=== PATIENT | male | born 1970 | race Caucasian/White ===

== ENCOUNTER 2017-11-14 20:00 | Emergency (ER) | payer BC ==
--- OUTSIDE RECORDS SUMMARY | 2017-11-14 20:02 | XMS REPORT | Clinical Summary ---
:1970 Author Organization [facility] Address [address] [place] [address] Care Team Providers Name Role Phone Janiya Baldwin MD Primary Care Provider Allergies Active Allergy Reactions Severity Noted Date Comments Sulfamethoxazole-Trimethoprim Hives 05/20/2017 Current Medications Prescription Sig. Disp. Refills Start Date End Date Status ZUBSOLV 5.7-1.4 mg 0 04/20/2017 Active tablet, sublingual amphetamine-dextro 0 04/20/2017 Active amphetamine XR (ADDERALL XR) 20 MG 24 hr capsule lisinopril Take 1 tablet 90 tablet 1 05/20/2017 Active (PRINIVIL,ZESTRIL) (20 mg total) by 20 mg mouth daily. tabletIndications: Essential hypertension metFORMIN Take 1 tablet 60 tablet 1 05/20/2017 Active (GLUCOPHAGE) 500 (500 mg total) 8 mg by mouth 2 (two) tabletIndications: times a day with Type 2 diabetes meals. mellitus without complication, without long-term current use of insulin blood-glucose Use as 1 each 0 05/20/2017 Active meter instructed 8 kitIndications: Type 2 diabetes mellitus without complication, without long-term current use of insulin lancets For checking 100 each 0 05/20/2017 Active miscIndications: blood sugars 3 Type 2 diabetes times a day mellitus without complication, without long-term current use of insulin blood sugar Check blood 100 strip 0 05/20/2017 Active diagnostic strips sugar once a day strip test strips lisinopril 2 04/20/2017 Discontinued (PRINIVIL,ZESTRIL) 7 20 mg tablet sodium,potassium,m Take 1 Bottle by 1 Bottle 0 05/27/2017 ag sulfates mouth once for 1 7 (SUPREP BOWEL PREP dose. KIT) 17.5-3.13-1.6 gram recon soln Active Problems Problem Noted Date Tobacco abuse Overview: Not ready to quit; knows that it is bad to smoke and risk factors. Last Assessment & Plan: 3 minutes were spent on tobacco use counseling. Tobacco use was Assessed and patient is an active tobacco user. Factors affecting choice of behavior were discussed. Willing to start chantix in near future. Opiate dependence Overview: on zubsolv - Dr. Zarco Hypertension Overview: lisinopril 20 mg; uncontrolled. No chest pain or SOB. Last Assessment & Plan: Hypertension is worsening. Continue current treatment regimen. Dietary sodium restriction. Weight loss. Regular aerobic exercise. Stop smoking. Continue current medications. Blood pressure will be reassessed at the next regular appointment. ETOH abuse Overview: Being on the zubsolv has helped with addiciton and planning to taper off. Diabetes Overview: was on janumet but then insurance wouldn't cover it. He states his sugars have been all over the place. Doesn't know what his A1c is. Knows his diet is bad. He denies any known complications. He does smoke. He used to drink a lot. Last Assessment & Plan: Diabetes is newly identified. Dietary recommendations for ADA diet. Regular aerobic exercise. Discussed sick day management. Discussed foot care. Reminded to get yearly retinal exam. Start back with metformin 500 mg BID and pending A1c will likely start victoza. Stressed importance of diet and exercise and he will get sugars checked daily. Diabetes will be reassessed in 1 month. ADD (attention deficit disorder) Overview: on adderall managed by pain management. 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 Last Assessment & Plan: The pt's BMI was assessed and in the obesity range. Behavioral risks were discussed. Advice was given in the form of specific change advice, carb, calorie and fat control, with handouts and examples. Sp ecific risks of harm were explained. We agreed on weight and dietary goals and methods and the patient expressed interest. Assistance was given in gaining skills for better food choices, alternatives in different social environments, and behavioral changes. Arrangements were made for follow up appointments for ongoing treatment and support. Referrals will be made for more intensive intervention as appropriate. Counseled for 15 minutes Encounters Date Type Specialty Care Team Description 11/01/2017 Refill Internal Medicine Janiya Baldwin Essential hypertension MD Lambert 08/11/2017 Refill Internal Medicine Janiya Baldwin Type 2 diabetes mellitus MD Lambert without complication, without long-term current use of insulin 08/10/2017 Refill Internal Medicine Janiya Baldwin Type 2 diabetes mellitus MD Lambert without complication, without long-term current use of insulin 08/03/2017 Refill Internal Medicine Janiya Baldwin Type 2 diabetes mellitus MD Lambert without complication, without long-term current use of insulin 07/28/2017 Telephone Internal Medicine Janiya Baldwin MD 07/15/2017 Telephone Internal Medicine Janiya Baldwin Type 2 diabetes mellitus MD Lambert without complication, without long-term current use of insulin 07/11/2017 Refill Internal Medicine Janiya Baldwin Type 2 diabetes mellitus MD Lambert without complication, without long-term current use of insulin 06/24/2017 Lab Lab Edwin Schuler MD 06/24/2017 Documentation Gastroenterology Edwin Schuler MD 06/22/2017 Telephone Gastroenterology Gloria Villalba MA 06/01/2017 Telephone Gastroenterology Gloria Villalba MA 05/31/2017 Telephone Gastroenterology Edwin Schuler MD 05/27/2017 Refill Gastroenterology Gloria Villalba MA 05/24/2017 Telephone Internal Medicine Janiya Baldwin MD 05/23/2017 Telephone Gastroenterology Edwin Schuler MD 05/20/2017 Lab Lab Janiya Baldwin Essential hypertension; MD Lambert Type 2 diabetes mellitus without complication, without long- term current use of insulin 05/20/2017 Office Visit Internal Medicine Janiya Baldwin ADD (attention deficit disorder) (Primary Dx); MD Lambert Type 2 diabetes mellitus without complication, without long- term current use of insulin; ETOH abuse; Essential hypertension; Morbid obesity due to excess calories; Opioid dependence in remission; Tobacco abuse; Screening for colon cancer; Skin lesion 05/20/2017 Refill Internal Medicine Janiya Baldwin MD after 11/13/2016 Family History Medical History Relation Name Comments Colon cancer Father Relation Name Status Comments Father Social History Tobacco Use Types Packs/Day Years Used Date Current Every Day Smoker Started: 1985 Smokeless Tobacco: Never Used Alcohol Use Drinks/Week oz/Week Comments Yes Sex Assigned at Date Recorded Not on file Last Filed Vital Signs Vital Sign Reading Time Taken Blood Pressure 144/86 05/20/2017 11:28 AM CDT Pulse 85 05/20/2017 11:28 AM CDT Temperature - - Respiratory Rate 16 05/20/2017 11:28 AM CDT Oxygen Saturation 96% 05/20/2017 11:28 AM CDT Inhaled Oxygen Concentration - - Weight 143 kg (316 lb) 05/20/2017 11:28 AM CDT Height 185.4 cm (6' 1") 05/20/2017 11:28 AM CDT Body Mass Index 41.69 05/20/2017 11:28 AM CDT Plan of Treatment Health Maintenance Due Date Last Done Comments FOOT EXAM 01/08/1978 OPHTHALMOLOGY EXAM 01/08/1978 URINE MICROALBUMIN 01/08/1978 INFLUENZA VACCINE 03/29/2017 Results Surgical pathology request (06/24/2017 10:44 AM) Component Value Ref Range Surgical pathology report See link below for PDF Lab Report Specimen Performing Laboratory Tissue [facility] DEPARTMENT OF PATHOLOGY AND GENOMIC MEDICINE [address] [place] [id number] CBC with platelet and differential (05/20/2017 12:48 PM) Component Value Ref Range WBC 8.6 3.8 - 10.8 Thousand/uL RBC 4.70 4.20 - 5.80 Million/uL HGB 13.9 13.2 - 17.1 g/dL HCT 41.7 38.5 - 50.0 % MCV 88.7 80.0 - 100.0 fL MCH 29.6 27.0 - 33.0 pg MCHC 33.3 32.0 - 36.0 g/dL RDW 12.5 11.0 - 15.0 % Platelet count 260 140 - 400 Thousand/uL MPV 11.3 7.5 - 12.5 fL Neutrophils, absolute 5,057 1,500 - 7,800 cells/uL Lymphocytes, absolute 2,571 850 - 3,900 cells/uL Monocytes, absolute 662 200 - 950 cells/uL Eosinophils, absolute 258 15 - 500 cells/uL Basophils, absolute 52 0 - 200 cells/uL Neutrophils 58.8 % Lymphocytes 29.9 % Monocytes 7.7 % Eosinophils 3.0 % Basophils + RC 0.6 % Specimen Performing Laboratory Blood [facility] Hemoglobin A1c (05/20/2017 12:48 PM) Component Value Ref Range Hemoglobin A1C 12.6 (H) <5.7 % of total Hgb Comment: For someone without known diabetes, a hemoglobin A1c value of 6.5% or greater indicates that they may have diabetes and this should be confirmed with a follow-up test. For someone with known diabetes, a value <7% indicates that their diabetes is well controlled and a value greater than or equal to 7% indicates suboptimal control. A1c targets should be individualized based on duration of diabetes, age, comorbid conditions, and other considerations. Currently, no consensus exists regarding use of hemoglobin A1c for diagnosis of diabetes for children. Specimen Performing Laboratory Blood [facility] Comprehensive metabolic panel (05/20/2017 12:48 PM) Component Value Ref Range Glucose 378 (H) 65 - 99 mg/dL Comment: Fasting reference interval For someone without known diabetes, a glucose value >125 mg/dL indicates that they may have diabetes and this should be confirmed with a follow-up test. BUN, whole blood 19 7 - 25 mg/dL Creatinine 0.81 0.60 - 1.35 mg/dL EGFR Non-Afr. [place] 104 > OR=60 mL/min/1.73m2 EGFR 121 > OR=60 mL/min/1.73m2 BUN/creatinine ratio NOT APPLICABLE 6 - 22 (calc) Sodium 133 (L) 135 - 146 mmol/L Potassium 4.5 3.5 - 5.3 mmol/L Chloride 98 98 - 110 mmol/L CO2 28 20 - 31 mmol/L Calcium 9.2 8.6 - 10.3 mg/dL Protein 6.9 6.1 - 8.1 g/dL Albumin, S 3.9 3.6 - 5.1 g/dL Globulin, total 3.0 1.9 - 3.7 g/dL (calc) Albumin/globulin ratio 1.3 1.0 - 2.5 (calc) Total bilirubin 0.3 0.2 - 1.2 mg/dL Alkaline phosphatase 107 40 - 115 U/L AST 25 10 - 40 U/L ALT 39 9 - 46 U/L Specimen Performing Laboratory Blood [facility] after 11/13/2016 Insurance Payer Benefit Plan / Group Subscriber ID Type Phone Address BCBS BCBS CHOICE PPO/[employer]PL PPO xxxxxxxxxxxx PPO Home: [address] [phone] [place] [address]
--- NOTE | 2017-11-14 21:24 | EDPHYS ---
Physician Documentation [facility] Name: Lonnie Hardin Age: 47 yrs Sex: Male : 1970 Arrival Date: 11/14/2017 Time: 20:04 Bed 15 Private MD: Saji Zarco W ED Physician Barney Staley HPI: 11/14 21:19 This 47 yrs old Male presents to ER via Ambulatory with complaints of Leg gs Swelling. 21:19 The patient presents with cellulitis of the left hernandez. Description: The affected area gs is moderate sized, erythematous. Onset: The symptoms/episode began/occurred 5 day(s) ago. Possible cause(s): unknown. Associated signs and symptoms: Pertinent negatives: fever. Modifying factors: the symptoms are alleviated by nothing, the symptoms are aggravated by nothing. Severity of symptoms: At their worst the symptoms were moderate, in the emergency department the symptoms are unchanged. The patient has experienced similar episodes in the past, a few times. The patient has been recently seen by a physician: the patient's primary care provider, 1 week(s) ago. Historical: - Allergies: 20:26 Bactrim; lp1 - Home Meds: 20:26 lisinopril Oral [Active]; Metformin Oral [Active]; Adderall XR Oral [Active]; lp1 - PMHx: 20:26 ADD/ADHD; Diabetes - NIDDM; Hypertension; lp1 - PSHx: 20:26 None; lp1 - Immunization history:: Adult Immunizations up to date. - Social history:: Smoking status: Patient uses tobacco products, smokes one pack cigarettes per day. ROS: 21:19 Constitutional: Negative for fever. gs 21:19 All other systems are negative. Exam: 21:19 Head/Face: Normocephalic, atraumatic. Eyes: Pupils equal round and reactive to light, gs extra-ocular motions intact. Lids and lashes normal. Conjunctiva and sclera are non-icteric and not injected. Cornea within normal limits. Periorbital areas with no swelling, redness, or edema. ENT: Nares patent. No nasal discharge, no septal abnormalities noted. Tympanic membranes are normal and external auditory canals are clear. Oropharynx with no redness, swelling, or masses, exudates, or evidence of obstruction, uvula midline. Mucous membranes moist. Neck: Trachea midline, no thyromegaly or masses palpated, and no cervical lymphadenopathy. Supple, full range of motion without nuchal rigidity, or vertebral point tenderness. No Meningismus. Chest/axilla: Normal chest wall appearance and motion. Nontender with no deformity. No lesions are appreciated. Cardiovascular: Regular rate and rhythm with a normal S1 and S2. No gallops, murmurs, or rubs. Normal PMI, no JVD. No pulse deficits. Respiratory: Lungs have equal breath sounds bilaterally, clear to auscultation and percussion. No rales, rhonchi or wheezes noted. No increased work of breathing, no retractions or nasal flaring. Abdomen/GI: Soft, non-tender, with normal bowel sounds. No distension or tympany. No guarding or rebound. No evidence of tenderness throughout. Back: No spinal tenderness. No costovertebral tenderness. Full range of motion. MS/ Extremity: Pulses equal, no cyanosis. Neurovascular intact. Full, normal range of motion. Neuro: Awake and alert, GCS 15, oriented to person, place, time, and situation. Cranial nerves II-XII grossly intact. Motor strength 5/5 in all extremities. Sensory grossly intact. Cerebellar exam normal. Normal gait. 21:19 Constitutional: The patient appears alert, awake. 21:19 Musculoskeletal/extremity: Extremities: noted in the left leg: swelling, mild, Circulation is intact in all extremities. DVT Exam: no tenderness, negative Homans' sign noted on exam, no appreciated bluish discoloration. 21:19 Skin: cellulitis, that is moderate, well demarcated, on the left hernandez. Vital Signs: 20:25 BP 141 / 82; Pulse 86; Resp 18; Temp 98.3(O); Pulse Ox 97% on R/A; Weight 146.06 kg; lp1 Height 6 ft. 1 in. (185.42 cm); Pain 8/10; 21:33 BP 141 / 79 RA Sitting (auto/); Pulse 82; Resp 16; Pulse Ox 98% on R/A; ar4 20:25 Body Mass Index 42.48 (146.06 kg, 185.42 cm) lp1 MDM: 21:17 Patient medically screened. gs 21:19 Differential diagnosis: cellulitis. Data reviewed: vital signs, nurses notes. Response gs to treatment: There is no appreciated change of the patient's symptoms at this time, and as a result, I will discharge patient. Administered Medications: 21:30 Drug: Cephalexin 1000 mg Route: PO; tc3 21:31 Follow up: Response: No adverse reaction tc3 Disposition: 11/14/17 21:23 Discharged to Home. Impression: Cellulitis of left lower limb. - Condition is Stable. - Discharge Instructions: Cellulitis. - Prescriptions for Bactroban 2 % Topical cream - apply 1 ribbon by TOPICAL route 2 times per day; 30 gram. Keflex 500 mg Oral Capsule - take 2 capsule by ORAL route every 12 hours for 10 days; 40 capsule. - Medication Reconciliation Form, Thank You Letter, Antibiotic Education, Prescription Opioid Use form. - Follow up: Private Physician; When: 1 - 2 days; Reason: Re-evaluation by your physician. Signatures: Nitza Almonte RN RN lp1 Marya Maya RN RN tc3 Barney Staley MD MD gs Roberts, Amber ar4
--- NOTE | 2017-11-14 21:24 | ER ---
Nurse's Notes [facility] Name: Lonnie Hardin Age: 47 yrs Sex: Male : 1970 Arrival Date: 11/14/2017 Time: 20:04 Bed 15 Private MD: Saji Zarco W Diagnosis: Cellulitis of left lower limb Presentation: 11/14 20:24 Presenting complaint: Patient states: Redness, swelling to left lower leg x 1 week; Hx lp1 of cellulitis; Denies any fever. Transition of care: patient was not received from another setting of care. Onset of symptoms was November 14, 2017. Care prior to arrival: None. 20:24 Method Of Arrival: Ambulatory lp1 20:24 Acuity: SOFIE 3 lp1 Triage Assessment: 20:27 General: Appears in no apparent distress. Behavior is calm, cooperative, appropriate lp1 for age. Pain: Complains of pain in left leg. Derm: Wound noted Other: redness to left lower leg, edema noted. Historical: - Allergies: 20:26 Bactrim; lp1 - Home Meds: 20:26 lisinopril Oral [Active]; Metformin Oral [Active]; Adderall XR Oral [Active]; lp1 - PMHx: 20:26 ADD/ADHD; Diabetes - NIDDM; Hypertension; lp1 - PSHx: 20:26 None; lp1 - Immunization history:: Adult Immunizations up to date. - Social history:: Smoking status: Patient uses tobacco products, smokes one pack cigarettes per day. Screenin:26 Abuse screen: Denies threats or abuse. Denies injuries from another. Nutritional lp1 screening: No deficits noted. Tuberculosis screening: No symptoms or risk factors identified. Fall Risk None identified. Assessment: 21:25 General: Appears in no apparent distress. comfortable, Behavior is calm, cooperative, tc3 appropriate for age. Pain: Complains of pain in left leg Pain currently is 8 out of 10 on a pain scale. Is continuous, Alleviated by nothing. Neuro: No deficits noted. Level of Consciousness is awake, alert, obeys commands, Oriented to person, place, time, situation. Cardiovascular: No deficits noted. Reports None Heart tones S1 S2 present Capillary refill < 3 seconds in bilateral fingers toes. Respiratory: No deficits noted. Airway is patent Respiratory effort is even, unlabored, Respiratory pattern is regular, symmetrical, Breath sounds are clear bilaterally. GI: No deficits noted. No signs and/or symptoms were reported involving the gastrointestinal system. Abdomen is non-distended, Bowel sounds present X 4 quads. Abd is soft and non tender X 4 quads. : No deficits noted. No signs and/or symptoms were reported regarding the genitourinary system. EENT: No deficits noted. No signs and/or symptoms were reported regarding the EENT system. Derm: No deficits noted. No signs and/or symptoms reported regarding the dermatologic system. Skin is intact, is healthy with good turgor, Skin is pink, warm \T\ dry. Musculoskeletal: No deficits noted. No signs and/or symptoms reported regarding the musculoskeletal system. Circulation, motion, and sensation intact. Range of motion: intact in all extremities. Vital Signs: 20:25 BP 141 / 82; Pulse 86; Resp 18; Temp 98.3(O); Pulse Ox 97% on R/A; Weight 146.06 kg; lp1 Height 6 ft. 1 in. (185.42 cm); Pain 8/10; 21:33 BP 141 / 79 RA Sitting (auto/); Pulse 82; Resp 16; Pulse Ox 98% on R/A; ar4 20:25 Body Mass Index 42.48 (146.06 kg, 185.42 cm) lp1 ED Course: 20:04 Patient arrived in ED. mr 20:04 Saji Zarco MD is Private Physician. mr 20:25 Triage completed. lp1 20:25 Arm band placed on right wrist. lp1 20:58 Barney Staley MD is Attending Physician. gs 21:06 Marya Maya, JOSIE is Primary Nurse. tc3 21:06 Patient has correct armband on for positive identification. Bed in low position. Call tc3 light in reach. Side rails up X 1. Pulse ox on. NIBP on. Verbal reassurance given. 21:28 No provider procedures requiring assistance completed. Patient did not have IV access tc3 during this emergency room visit. Administered Medications: 21:30 Drug: Cephalexin 1000 mg Route: PO; tc3 21:31 Follow up: Response: No adverse reaction tc3 Outcome: 21:23 Discharge ordered by . gs 21:33 Discharged to home ambulatory. ar4 21:33 Condition: good 21:33 Discharge instructions given to patient, Instructed on discharge instructions, follow up and referral plans. medication usage, Demonstrated understanding of instructions, follow-up care, medications, Prescriptions given X 2. 21:35 Patient left the ED. ar4 21:36 Attestation : I concur with the documentation charted by JADEN Freeman. tc3 Signatures: Gloria Hendrickson mr AlmonteNitza RN RN lp1 Marya Maya RN RN tc3 Barney Staley MD MD gs Roberts, Monserrat arEdson
[2017-11-14 21:48] VITALS: TEMP 98.3
[2017-11-14 21:49] VITALS: BP 141/79; O2SAT 98
[2017-11-14] MEDS ORDERED: CEPHALEXIN 250 MG CAP ONE (21:49)
== END 2017-11-14 21:35 | disposition home or self-care (01) ==
LOC: ER 20:00
DX: L03.116 Cellulitis of left lower limb (principal); I10 Essential (primary) hypertension; E11.9 Type 2 diabetes mellitus without complications; F90.9 Attention-deficit hyperactivity disorder, unspecified type; F17.210 Nicotine dependence, cigarettes, uncomplicated; Z88.3 Allergy status to other anti-infective agents
CPT/HCPCS: 99283